=== PATIENT | male | born 1995 | race Caucasian/White ===

== ENCOUNTER 2021-10-08 13:32 | Emergency (ER) | payer MEDICAID ==
[~2021-10-08] VITALS: Ht 157.5 cm; Wt 54.5 kg
[2021-10-08] MEDS ORDERED: KETOROLAC TROMETHAMINE 10 MG TABLET PO ONE (14:00)
[2021-10-08 15:46] VITALS: BP 111/59
== END 2021-10-08 16:16 | disposition home or self-care (01) ==
LOC: EMS 13:32
DX: S83.91XA Sprain of unspecified site of right knee, initial encounter (principal); W01.0XXA Fall on same level from slipping, tripping and stumbling without subsequent striking against object, initial encounter; Y93.89 Activity, other specified; Y92.89 Other specified places as the place of occurrence of the external cause; Y99.8 Other external cause status
CPT/HCPCS: 99283

== ENCOUNTER 2023-03-16 15:24 | Emergency (ER) | payer MEDICAID ==
[~2023-03-16] VITALS: Ht 160 cm; Wt 43.2 kg
[2023-03-16 15:31] VITALS: BP 98/56; PULSE 88; RESP 16; TEMP 98
== END 2023-03-16 18:58 | disposition home or self-care (01) ==
LOC: EMS 15:25
DX: Z98.2 Presence of cerebrospinal fluid drainage device (principal); F12.90 Cannabis use, unspecified, uncomplicated; Z87.891 Personal history of nicotine dependence
CPT/HCPCS: 99281; Z7502